=== PATIENT | male | born 1960 | race Caucasian/White ===

== ENCOUNTER 2017-11-29 09:57 | Outpatient (CLI) | payer OTHER | END 2017-11-29 23:59 | disposition home or self-care (01) | LOC: RAD 09:57 → EDSTATUS 12-01 09:26 | PROVIDERS: ATTEND Nurse Practitioner Family | DX: S52.591D Other fractures of lower end of right radius, subsequent encounter for closed fracture with routine healing (principal); S52.611D Displaced fracture of right ulna styloid process, subsequent encounter for closed fracture with routine healing; X58.XXXD Exposure to other specified factors, subsequent encounter | CPT/HCPCS: 73110 ==

== ENCOUNTER 2018-01-08 11:27 | Outpatient (CLI) | payer OTHER | END 2018-01-08 12:20 | disposition home or self-care (01) | LOC: ORTHO 11:27 | PROVIDERS: ATTEND Nurse Practitioner Family | DX: S52.611D Displaced fracture of right ulna styloid process, subsequent encounter for closed fracture with routine healing (principal); I10 Essential (primary) hypertension; X58.XXXD Exposure to other specified factors, subsequent encounter | CPT/HCPCS: 99213 ==

== ENCOUNTER → 2018-01-30 | Emergency (ER) | payer OTHER ==
[~2018-01-30] VITALS: Ht 182.9 cm; Wt 92.7 kg
[~2018-01-30] MED LIST: SULF1TAB49 PO; benoxinate/fluorescein ophth drops 5ml bottle LEFTEYE ONE
[2018-01-30 06:58] VITALS: BP 162/88
== END | disposition home or self-care (01) ==
LOC: ER 06:54
DX: H10.9 Unspecified conjunctivitis (principal); Z79.899 Other long term (current) drug therapy
CPT/HCPCS: 99283

== ENCOUNTER 2018-02-11 11:25 | Outpatient (CLI) | payer OTHER ==
[2018-02-11] MEDS ORDERED: iohexol 300 MG/1 ML 10ml vial ONE (11:43)
[2018-02-11] MEDS ORDERED: gadopentetate dimeglumine 5 mmol/10ml vial IV ONE (11:44)
[2018-02-11] MEDS ORDERED: sodium bicarbonate 4.2% (0.5mEq/ml) inj. ONE (12:15)
== END 2018-02-11 23:59 | disposition home or self-care (01) ==
LOC: RAD 11:25
PROVIDERS: ATTEND Family Medicine Sports Medicine
DX: S43.51XA Sprain of right acromioclavicular joint, initial encounter (principal); I10 Essential (primary) hypertension; X58.XXXA Exposure to other specified factors, initial encounter; Y93.89 Activity, other specified; Y92.89 Other specified places as the place of occurrence of the external cause; Y99.8 Other external cause status
CPT/HCPCS: 73222; A9579; Q9967

== ENCOUNTER 2018-02-19 11:32 | Outpatient (CLI) | payer OTHER ==
[~2018-02-19] VITALS: Ht 182.9 cm; Wt 90.9 kg
== END 2018-02-19 12:59 | disposition home or self-care (01) ==
LOC: ORTHO 11:32
PROVIDERS: ATTEND Nurse Practitioner Family
DX: S69.91XD Unspecified injury of right wrist, hand and finger(s), subsequent encounter (principal); I10 Essential (primary) hypertension; X58.XXXD Exposure to other specified factors, subsequent encounter
CPT/HCPCS: 99213

== ENCOUNTER 2019-01-13 11:38 | Outpatient (CLI) | payer OTHER | END 2019-01-13 23:59 | disposition home or self-care (01) | LOC: RAD 11:38 | PROVIDERS: ATTEND Family Medicine | DX: S52.614K Nondisplaced fracture of right ulna styloid process, subsequent encounter for closed fracture with nonunion (principal); S63.094D Other dislocation of right wrist and hand, subsequent encounter; S63.591D Other specified sprain of right wrist, subsequent encounter; M19.031 Primary osteoarthritis, right wrist; M67.431 Ganglion, right wrist; X58.XXXD Exposure to other specified factors, subsequent encounter | CPT/HCPCS: 73110 ==

== ENCOUNTER 2019-05-31 14:31 | Outpatient (CLI) | payer OTHER ==
[2019-05-31 15:35] LABS: TOTAL PROTEIN,URINE RANDOM 13.4 MG/DL; UA PROTEIN/CREATININE RATIO 0.08 mg/mg Cr (0-0.16)
[2019-05-31 15:36] LABS: BASOPHILS % (AUTO) 0.3 % (0-1); EOSINOPHILS # (AUTO) 0.1 X10'3 (0-0.9); EOSINOPHILS % (AUTO) 1.5 % (0-6); HEMATOCRIT 44.4 % (42.0-52.0); HEMOGLOBIN 15.2 g/dl (14.0-17.9); LYMPHOCYTES # (AUTO) 2.6 X10'3 (1.1-4.8); LYMPHOCYTES % (AUTO) 33.9 % (21-51); MEAN CORPUSCULAR HEMOGLOBIN 32.7 PG (27.0-31.0); MEAN CORPUSCULAR HGB CONC 34.3 g/dL (33.0-36.5); MEAN CORPUSCULAR VOLUME 95.2 FL (78-98); MEAN PLATELET VOLUME 9.4 FL (7.4-10.4); MONOCYTES # (AUTO) 0.6 X10'3 (0-0.9); MONOCYTES % (AUTO) 8.4 % (2-12); NEUTROPHILS # (AUTO) 4.2 X10'3 (1.8-7.7); NEUTROPHILS % (AUTO) 55.9 % (42-75); PLATELET COUNT 267 X10'3 (140-440); RED BLOOD COUNT 4.66 X10'6 (4.70-6.10); RED CELL DISTRIBUTION WIDTH 12.6 % (11.5-14.5); WHITE BLOOD COUNT 7.5 X10'3 (4.5-11.0)
[2019-05-31 15:36] LABS: CLARITY,URINE CLEAR (Clear); COLOR,URINE YELLOW (Yellow); GLUCOSE, URINE NEGATIVE (Neg); KETONES,URINE NEGATIVE (Neg); LEUKOCYTE ESTERASE ,URINE NEGATIVE (Neg); NITRITES, URINE NEGATIVE (Neg); OCCULT BLOOD,URINE NEGATIVE (Neg); PROTEIN,URINE NEGATIVE (Neg); UA COLLECTION TYPE VOIDED; UROBILINOGEN,URINE 0.2 E.U/dL (0.2-1.0)
[2019-05-31 15:52] LABS: ALANINE AMINOTRANSFERASE 50 U/L (12-78); ALBUMIN 4.8 G/DL (3.4-5.0); ALBUMIN/GLOBULIN RATIO 1.2 (1.1-1.5); ALKALINE PHOSPHATASE 65 IU/L (46-116); ANION GAP 10 (8-16); ASPARTATE AMINO TRANSFERASE 27 U/L (10-37); BILIRUBIN,TOTAL 0.5 MG/DL (0.1-1.0); BLOOD UREA NITROGEN 22 MG/DL (7-18); BUN/CREATININE RATIO 16.5 (5.4-32.0); CALCIUM 9.9 MG/DL (8.5-10.1); CHLORIDE 104 MMOL/L (99-107); CHOL/HDL RATIO 3.1 (0.00-4.99); CHOLESTEROL 283 MG/DL (0-200); CREATININE 1.33 MG/DL (0.60-1.10); GLUCOSE 107 MG/DL (70-104); HDL CHOLESTEROL 90 MG/DL (35-60); LDL CHOLESTEROL 163 MG/DL (50-100); SODIUM 141 MMOL/L (135-145); TOTAL CARBON DIOXIDE 26.6 MMOL/L (24-32); TOTAL PROTEIN 8.8 G/DL (6.4-8.2); TRIGLYCERIDES 144 MG/DL (20-135); eGFR 55 ML/MIN
== END 2019-05-31 23:59 | disposition home or self-care (01) ==
LOC: LAB 14:31
PROVIDERS: ATTEND Family Medicine
DX: Z01.818 Encounter for other preprocedural examination (principal)
CPT/HCPCS: 36415; 80053; 80061; 81003; 82570; 84156; 85025; 85610

== ENCOUNTER 2019-11-29 14:46 | Outpatient (CLI) | payer OTHER | END 2019-11-29 23:59 | disposition home or self-care (01) | LOC: 64 CT 14:46 | PROVIDERS: ATTEND Family Medicine | DX: S52.614K Nondisplaced fracture of right ulna styloid process, subsequent encounter for closed fracture with nonunion (principal); S63.591D Other specified sprain of right wrist, subsequent encounter; S63.094D Other dislocation of right wrist and hand, subsequent encounter; X58.XXXD Exposure to other specified factors, subsequent encounter | CPT/HCPCS: 73110 ==

== ENCOUNTER → 2021-03-23 | Outpatient (CLI) | payer BC | END | disposition home or self-care (01) | LOC: RAD 07:41 | PROVIDERS: ATTEND Family Medicine | DX: M47.812 Spondylosis without myelopathy or radiculopathy, cervical region (principal); M50.30 Other cervical disc degeneration, unspecified cervical region; M48.02 Spinal stenosis, cervical region; M25.78 Osteophyte, vertebrae; G95.89 Other specified diseases of spinal cord | CPT/HCPCS: 72052; 72125 ==